=== PATIENT | female | born 1995 | race Caucasian/White ===

== ENCOUNTER 2022-09-02 11:03 | Emergency (ER) | payer BC, SELFPAY ==
[2022-09-02 11:11] VITALS: O2SAT 97
[2022-09-02 11:12] VITALS: BP 110/79; PULSE 117; RESP 14; TEMP 37.8; O2SAT 97
[2022-09-02 11:20] VITALS: O2SAT 98
[2022-09-02] MEDS: DICYCLOMINE HCL 10 MG CAPSULE 20 MG PO (11:37)
[2022-09-02] MEDS: LOPERAMIDE HCL 2 MG CAPSULE 4 MG PO (11:37)
[2022-09-02] MEDS: ONDANSETRON HCL ODT 4 MG TABLET PO (11:38)
[2022-09-02 12:17] LABS: Add Urine Microscopic? YES; Appearance Urine Cloudy (Clear); Bacteria Urine Trace /hpf; Bilirubin Urine Negative (Negative); Blood Urine Negative (Negative); Color Urine Amber (Yellow); Glucose Urine UA Negative (Negative); Ketones Urine Negative (Negative); Leukocyte Esterase Ur Trace LEU/UL (Negative); Mucus Urine Rare /lpf; Nitrate Urine Negative (Negative); Protein Urine 2+ mg/dL (Negative); Specific Grav Ur 1.027 (1.001-1.035); Squamous Epithelial Cell Urine Many /hpf (Few); Urobilinogen Urine Negative mg/dL (<2.0)
--- NOTE | 2022-09-02 12:19 | ED.NAVMDI ---
HPI - Nausea/Vomiting/Diarrhea General Chief complaint: Abdominal Pain Stated complaint: abdominal pain with bloody stool Time Seen by Provider: 09/02/22 11:16 History of Present Illness HPI Narrative: Patient states that about 2 days ago she had some lower back pain and nausea, vomiting, diarrhea, low-grade fever. She is having some diarrhea and she started having some blood when she wiped, but has now resolved and she is just having watery diarrhea at this time. She is also having some cramps when she has diarrhea. No abdominal pain but has some dysuria. Related Data Home Medications Medication Instructions Recorded Confirmed bupropion HCl 300 mg 24 hr tablet, mg PO 09/02/22 extended release oxcarbazepine 150 mg tablet mg 09/02/22 propranolol 10 mg tablet mg 09/02/22 Allergies Allergy/AdvReac Type Severity Reaction Status Date / Time No Known Allergies Allergy Verified 09/02/22 11:39 Review of Systems Review of Systems: CONST: Chills HEENT: No sore throat C/V: No chest pain RESP: No cough GI: Reports nausea, vomiting[, diarrhea] : dysuria. M/S: No joint pain. SKIN: No rash. NEURO: [No headache or focal numbness or weakness] PSYCH: [No depression] [facility] Past Medical History Medical History (Updated 09/02/22 @ 12:46 by Shital Ly MD) No significant medical problems Surgical History Surgical History (Updated 09/02/22 @ 12:46 by Shital Ly MD) No significant past surgical history Exam Narrative: EXAMINATION OF ORGAN SYSTEMS/BODY AREAS: Constitutional: Vital signs per nursing GENERAL:[No acute distress, non-toxic appearing.] HEAD: Normal with no signs of head trauma. EYES: EOMI, conjunctiva normal ENT: Hearing grossly intact LUNGS: Nonlabored breathing. HEART: [Regular rate and rhythm] ABD: [Soft], [nontender to palpation] RECTAL: Scant stool, no gross blood; hemoccult + faintly EXT: Normal range of motion SKIN: [No rashes or lesions.] NEURO: [Alert and oriented x 3. No gross focal sensory or strength deficits.] PSYCH: Normal affect Course Vital Signs Vital signs: Vital Signs Pulse Oximetry 97 09/02/22 11:11 Temperature 100.1 F H 09/02/22 12:23 Pulse Rate 91 09/02/22 12:23 Respiratory Rate 12 09/02/22 12:23 Blood Pressure 91/69 L 09/02/22 12:23 Pulse Oximetry 100 09/02/22 12:23 MDM - Nausea/Vomiting/Diarrhea MDM Narrative Medical decision making narrative: 26-year-old female presenting with nausea, vomiting, diarrhea that was bloody yesterday but has now resolved. Vital signs notable for tachycardia, abdomen is soft and nontender, she is treated with antiemetics, antispasmodic, and antidiarrheal medicine, and on reevaluation she is feeling much better. Shared decision-making with patient, we felt that labs and imaging were not necessary at this time given her benign exam. She is able to ambulate without any issues, she is able to tolerate p.o., and her repeat vital signs show improvement. Repeat abdominal exam is benign, soft nontender, her urine does show possible infection so I will start her on antibiotics, and she is given strict precautions, she knows that if she is to start having any abdominal pain especially right lower quadrant pain she is to return immediately. Stable for discharge at this time. Lab Data Labs: Lab Results 09/02/22 Range/Units 11:42 Urine Color Penny (Yellow) Urine Appearance Cloudy H (Clear) Urine pH 5.0 (5.0-9.0) Ur Specific Bennet 1.027 (1.001-1.035) Urine Protein 2+ H (Negative) mg/dL Urine Glucose (UA) Negative (Negative) mg/dL Urine Ketones Negative (Negative) mg/dL Ur Blood (Man) Negative (Negative) Urine Nitrate Negative (Negative) Urine Bilirubin Negative (Negative) Urine Urobilinogen Negative (<2.0) mg/dL Leukocyte Esterase Rfl Trace H (Negative) BAKARI/UL Urine RBC 3-5 H (0-2) /hpf Urine WBC 4-6 H /hpf Ur Squamous Epith Cells Many H (Few) /hp
[2022-09-02] MEDS: ACETAMINOPHEN 500 MG TABLET 1000 MG PO (12:22)
[2022-09-02 12:23] VITALS: BP 91/69; PULSE 91; RESP 12; TEMP 37.8; O2SAT 100
[2022-09-02] MEDS: SULFAMETHOXAZOLE/TRIMETHOPRIM 800/160 MG DS TABLET 1 TAB PO (12:38)
== END 2022-09-02 12:51 | disposition home or self-care (01) ==
PROVIDERS: Emergency Provider Emergency Medicine
DX: N39.0 Urinary tract infection, site not specified (principal); R11.2 Nausea with vomiting, unspecified; R19.7 Diarrhea, unspecified
CPT/HCPCS: 81001; 81025; 99283; A9270